=== PATIENT | female | born 1935 | race Caucasian/White ===

== ENCOUNTER 2016-12-06 23:36 | Emergency (ER) | payer MEDICARE ==
[~2016-12-06] VITALS: Ht 160 cm; Wt 84.1 kg
[~2016-12-06 23:36] MED LIST: vitamins
[2016-12-06 23:38] VITALS: BP 178/88; PULSE 65; RESP 18; O2SAT 100
--- NOTE | 2016-12-06 23:46 | ED.REPORT ---
HPI-Neurologic Deficit Date of Service Dec 06, 2016 ED Provider: Charles Mckeon MD Pt is an 81 year old female with a hx of thyroid issues presenting to the ED complaining of intermittent sharp pains to the right side of her neck onset at 1800 today. Pain is relieved by pushing on the painful area, and is exacerbated by movement. Associated symptoms include a waxing and waning headache, and soreness in her right arm. Denies any numbness or weakness, speech changes, trouble walking, or facial droop. Denies hx of stroke, heart problems, disc or spine problems, or HTN. Nursing Notes Stated Complaint: POSS STROKE Chief Complaint: General Complaint Nursing Notes Reviewed: Yes Allergies: Coded Allergies: Sulfa (Sulfonamide Antibiotics) (Verified Allergy, Intermediate, Itching, 12/06/16) iodine (Verified Allergy, Intermediate, Red rash, 12/06/16) rash with p.o. iodine Shellfish (Verified Allergy, Mild, rash, 12/06/16) Procaine HCl (Verified Adverse Reaction, Intermediate, Dizzy, 12/07/16) Scheduled ([vitamins]) DAILY Prednisone (PredniSONE) 20 Mg Tablet 20 MG PO BID General Time Seen by Provider: 23:47 Chief Complaint Other (Neck pain) Hx Obtained From: Patient Arrived By: Walk-in Sudden in Onset?: Yes Onset Occurred: 5 - 8 hours ago Symptom Duration: Since onset Progression Since Onset: Constant Location: : Neck Quality: Painful Severity: Current: Moderate Severity: Maximum: Severe Recent Healthcare: No recent doctor visit, No recent hospitalization Similar Sx Previous: No Past Medical History Past Medical History Thyroid issues Denies hx of heart or spine issues Denies: Hypertension, Stroke Past Surgical History denies Smoking History Unknown if Ever Smoker Ambulatory Status Independent Review of Systems Review of Systems Note: No facial droop Musculoskeletal: Reports: Extremity pain, Neck pain Neurologic: Reports: Headache, Denies: Numbness, Problem walking, Slurred speech, Unable to speak Complete sys rev & neg: except as marked. Physical Exam Initial Vital Signs Vital Signs (First) Date Time Temp Pulse Resp B/P Pulse Ox O2 Delivery O2 Flow Rate FiO2 12/06/16 23:38 36.8 65 18 178/88 100 Room Air Initial VS: Reviewed, Vital signs abnormal ENT: Mucous membranes moist, Conjunctiva normal, No scleral icterus Abdomen / GI: Soft, Non-tender, No guarding, No rebound, No distention Extremities: Vascular intact, Neuro intact, No swelling, No tenderness Skin: Warm, Dry, No cyanosis Psychiatric: Mood/affect normal, Behavior normal, Normal thought content General/Constitutional: Awake, Alert, No acute distress, Well appearing Head / Eyes: Normocephalic, PERRL, EOMI, No nystagmus Respiratory / Chest: Breath sounds NL, Breath sounds = bilat, No respiratory distress, No rales, No rhonchi, No wheezing Cardiovascular: Heart rate NL, Regular rhythm, Heart sounds NL, Peripheral circulation NL Neurologic: Oriented X3, Speech NL, No motor deficits, No sensory deficits, CN II - XII intact, Reflexes equal bilat, Cerebellar NL Neck: Atraumatic Tender spasm at base of skull on the right and paraspinus area Interpretation & Diagnostics CT Head Interpretation CONCLUSION: Mild involutional changes. Midl patchy low density bilaterally in the deep white matter likely due to chronic ischemic small vessel disease. No acute intracranial abnormality. This report was transmitted to the emergency room at 12/07/2016 - 12:34:38 AM PDT. Study: Head CT no contrast Interpretation / Wet Read by: Interpret - Radiologist CT C-Spine Interpretation CONCLUSION: Extensive degenerative changes. Osteopenic bones. No acute fractures or subluxations. This report was transmitted to the emergency room at 12/07/2016 - 12:36:01 AM PDT. Study type: CT no contrast Interpretation / Wet Read by: Interpret - Radiologist Re-Eval/Medical Decision Med Decision/Clinical Course 81-year-old female with right upper neck pain and muscle spasm. CT scan of her head is normal. CT scan of the neck shows multiple areas of degenerative disease. I suspect that her pain is a cervical radiculopathy. She will be treated with prednisone and close follow-up. Re-Evaluation/Progress : Time of Eval: 00:47 Patient Status: Condition improved Re-Evaluation/Progress Note: Pt has continued pain, and is tearful. Will give Toradol. Informed of CT results. Discussed plan for discharge. Pt understands and agrees with plan. Counseled Regarding: Diagnosis, Lab results, Need for follow-up, When/why to return to ED Discharge & Departure Impression: Primary Impression: Cervical radicular pain Disposition: Home Discharge Condition All VS Reviewed: Yes Condition: Improved Patient Instructions: Cervical Radiculopathy (ED) Additional Instructions: The head CT scan is normal. The neck CT shows lots of arthritis. I suspect the ear pain is from a nerve pinched by the arthritis. Prednisone 20 mg twice a day for 5 days, #10 prescription written. Acetaminophen (Tylenol) as needed for mild pain. Hydrocodone/acetaminophen 5/ 325, one or 2 every 4-6 hours as needed for severe pain, #10 dispensed. Use this narcotic medication sparingly as it will cause constipation and MICU at higher risk for falls. Follow-up with your regular doctor for further evaluation and treatment if the pain persists. Referrals: Nydia Mccarty (PCP) Scribe Attestation Portions of this note were transcribed by Emerald Casarez. I, Dr. Mckeon personally performed the history, physical exam and medical decision-making; I reviewed and confirmed the accuracy of the information in the transcribed note. Signed by: Loraine Lyn, 12/07/2016. copies to: Nydia Mccarty Howard L MD Dec 06, 2016 23:46 EMERALD CASAREZ Dec 06, 2016 23:54
[2016-12-07] MEDS ORDERED: predniSONE 20 mg Tablet PO ONE (00:50)
[2016-12-07] MEDS ORDERED: _HYDROcodone/APAP 5-325 mg Tablet PO PRN (00:50)
[2016-12-07] MEDS ORDERED: PRE20 PO (00:51)
[2016-12-07 01:42] VITALS: BP 155/84; PULSE 68; RESP 16; O2SAT 100
--- NOTE | 2016-12-07 09:16 | DRSVH ---
PROCEDURE: CT CERVICAL SPINE WITHOUT CONTRAST ([id number]) INDICATIONS: headache, neck pain TECHNIQUE: Noncontrast 3 mm thick sections acquired from the skull base to the T4 level. Sagittal and coronal r eformats were then constructed. For radiation dose reduction, the following was used: automated exp osure control, adjustment of mA and/or kV according to patient size. COMPARISON: None. FINDINGS: Image quality: Excellent. Bones: No fractures or dislocations. Visualized superior ribs are intact. Spine degenerative disc d isease and facet arthropathy. 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 Soft tissues: Prevertebral soft tissues are normal in thickness. No paravertebral hematomas. No ap ical pneumothoraces. IMPRESSION: No fracture. No acute osseous lesion. If symptoms and/or clinical suspicion for patholog y persists, evaluation with MRI may be helpful for further assessment. Dictated by: Claudette Kaplan MD, PhD on 12/07/2016 at 9:04 Approved by: Claudette Kaplan MD, PhD on 12/07/2016 at 9:14
--- NOTE | 2016-12-07 09:21 | DRSVH ---
PROCEDURE: CT BRAIN WITHOUT CONTRAST ([id number]) INDICATIONS: headache, neck pain TECHNIQUE: Noncontrast 4.5 mm thick angled axial sections acquired from the foramen magnum to the vertex, with c oronal reformats. COMPARISON: None. FINDINGS: Image quality: Excellent. CSF spaces: Basal cisterns are patent. No extra-axial fluid collections. The ventricles are symmet tena in size and shape. Brain: There is a 1.5 x 2.1 x 1.6 cm hyperdense mass involving the pituitary fossa and the suprasell ar cistern. Lesion is causing mass effect on the optic chiasm. The lesion may represent a neoplastic process arising from the pituitary gland such as pituitary macroadenoma or large cerebral aneurysm. R ecommend MRI of the brain with and without contrast for definitive characterization. No intracranial bleeds. There is cerebral volume loss for age, with resultant ventricular and sulcal prominence. Th ere are periventricular and deep white matter chronic small vessel ischemic changes. There is intrac ranial internal carotid artery atherosclerosis. Skull and face: Calvarium and visualized facial bones appear intact, without suspicious lesions. Sinuses: Mild mucosal thickening noted in the visualized left maxillary sinus. Scattered air-fluid le vels noted in the dependent portion of the right mastoid air cells. Left mastoid air cells are clear. IMPRESSION: 1. No acute intracranial disease process. 2. 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 Differential diagnosis includes pituitary neoplastic process versus cerebral aneurysm. Recomm end MRI of the brain with and without contrast for definitive characterization. 3. Findings and recommendations discussed with MATHEUS Valencia on 11/15/2016 at 0911 hours. Ms. Jace becerril confirmed recognition of the urgent nature of the findings. Dictated by: Claudette Kaplan MD, PhD on 12/07/2016 at 8:50 Approved by: Claudette Kaplan MD, PhD on 12/07/2016 at 9:19
== END 2016-12-07 01:44 | disposition home or self-care (01) ==
LOC: SED 23:36
DX: M54.12 Radiculopathy, cervical region (principal); R51 Headache; Z86.39 Personal history of other endocrine, nutritional and metabolic disease; Z88.2 Allergy status to sulfonamides; Z88.8 Allergy status to other drugs, medicaments and biological substances
CPT/HCPCS: 70450; 72125; 96372; 99284; J1885